=== PATIENT | female | born 1960 | race Caucasian/White ===

== ENCOUNTER 2019-12-24 12:56 | Emergency (ER) | payer OTHER ==
[~2019-12-24] VITALS: Ht 160 cm; Wt 104.5 kg
[~2019-12-24 12:56] MED LIST: LEVOXYL125 MCG PO; PRINIVIL20 MG PO; PROZAC40 MG PO; ULTRAM50 MG PO; XANAX0.5 MG PO
[2019-12-24 14:15] VITALS: BP 138/85; Ht 160 cm; Wt 104.5 kg
[2019-12-24] MEDS ORDERED: CATAPRES0.1 MG PO (14:19)
[2019-12-24] MEDS ORDERED: ZOLOFT50 MG PO (14:19)
[2019-12-24] MEDS ORDERED: VOLTAREN75 MG PO (14:19)
[2019-12-24] MEDS ORDERED: NORVASC10 MG PO (14:19)
[2019-12-24] MEDS ORDERED: ADVIL200 MG PO (14:20)
[2019-12-24] MEDS ORDERED: STERAPRED DS 1010 MG PO (16:56)
[2019-12-24] MEDS ORDERED: KEFLEX500 MG PO (16:56)
== END 2019-12-24 17:32 | disposition home or self-care (01) ==
LOC: D.ER 12:56
DX: J32.9 Chronic sinusitis, unspecified (principal); R60.9 Edema, unspecified; I10 Essential (primary) hypertension; J45.909 Unspecified asthma, uncomplicated; E07.9 Disorder of thyroid, unspecified